=== PATIENT | female | born 2000 | race Caucasian/White ===

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

== ENCOUNTER 2021-04-07 09:25 | Emergency (ER) | payer BC ==
[~2021-04-07] VITALS: Ht 152.4 cm; Wt 91.0 kg
[2021-04-07 10:21] LABS: BASOPHILS % 0.5 % (0.0-2.0); EOSINOPHILS % 0.3 % (0.0-5.0); HEMATOCRIT. 41.4 % (36.0-48.0); LYMPHOCYTES % 8.8 % (20.0-50.0); MEAN CORPUSCULAR HEMOGLOBIN 29.1 pg (28.0-32.0); MEAN PLATELET VOLUME 9.7 fl (7.4-10.4); MONOCYTES % 6.3 % (2.0-8.0); NEUTROPHILS % 84.1 % (40.0-76.0); PLATELET 246 x1000/uL (130-400); RED BLOOD CELL COUNT 4.81 mill/uL (4.2-5.4); RED CELL DISTRIBUTION WIDTH 13.2 % (11.6-14.6)
[2021-04-07 10:28] LABS: CHLORIDE 106 mEq/L (98-107)
[2021-04-07 12:15] VITALS: BP 118/70
[2021-04-07] MEDS ORDERED: TOPUD PO (12:17)
== END 2021-04-07 12:35 | disposition home or self-care (01) ==
LOC: ER 09:37
DX: R07.2 Precordial pain (principal); R03.0 Elevated blood-pressure reading, without diagnosis of hypertension; D72.829 Elevated white blood cell count, unspecified
CPT/HCPCS: 36415; 71045; 80053; 84484; 85025; 93005; 99285